=== PATIENT | male | born 1945 | race Caucasian/White ===

== ENCOUNTER 2021-04-13 05:03 | Inpatient (IN) | payer MEDICARE, OTHER ==
[2021-04-13] VITALS (9 sets, daily range): BP systolic 98–122; BP diastolic 59–75
[~2021-04-13] VITALS: Ht 185.4 cm; Wt 88.6 kg
[~2021-04-13 05:03] MED LIST: AMLO10TA PO; ASPI-1265 PO; HYDR-3136 PO; LOP25T PO; OLME40TA13 PO
[2021-04-13] MEDS ORDERED: octreotide inj. 500 MCG in normal saline 100ml IV soln 97.5 ML IV ONE (05:20)
[2021-04-13] MEDS ORDERED: famotidine/PF 10 mg/ml inj IV ONE (05:20)
[2021-04-13] MEDS ORDERED: pantoprazole 40MG/D5 100ML BAG 100 ML IV ONE (05:20)
[2021-04-13] MEDS ORDERED: normal saline 1000ML IV soln IV ONE (05:20)
[2021-04-13] MEDS ORDERED: pantoprazole 40MG/NS 100ML BAG 100 ML IV ONE (05:25)
[2021-04-13 05:38] LABS: APTT 28 SECONDS (22-32)
[2021-04-13 05:42] LABS: ALANINE AMINOTRANSFERASE 22 U/L (12-78); ALBUMIN 3.5 G/DL (3.4-5.0); ALBUMIN/GLOBULIN RATIO 1.1 (1.1-1.5); ALKALINE PHOSPHATASE 51 IU/L (46-116); ANION GAP 11 (8-16); ASPARTATE AMINO TRANSFERASE 21 U/L (10-37); BILIRUBIN,TOTAL 0.7 MG/DL (0.1-1.0); BLOOD UREA NITROGEN 44 MG/DL (7-18); BUN/CREATININE RATIO 58.7 (5.4-32.0); CALCIUM 9.1 MG/DL (8.5-10.1); CHLORIDE 98 MMOL/L (99-107); CREATININE 0.75 MG/DL (0.60-1.10); SODIUM 134 MMOL/L (135-145); TOTAL CARBON DIOXIDE 25.2 MMOL/L (24-32); TOTAL PROTEIN 6.6 G/DL (6.4-8.2); eGFR > 90 ML/MIN
[2021-04-13 05:43] LABS: BASOPHILS # (AUTO) 0.1 X10'3 (0-0.2); BASOPHILS % (AUTO) 0.4 % (0-1); EOSINOPHILS % (AUTO) 0.4 % (0-6); GLUCOSE 140 MG/DL (70-104); HEMATOCRIT 32.2 % (42.0-52.0); LYMPHOCYTES # (AUTO) 1.5 X10'3 (1.1-4.8); LYMPHOCYTES % (AUTO) 12.6 % (21-51); MEAN CORPUSCULAR HEMOGLOBIN 32.6 PG (27.0-31.0); MEAN PLATELET VOLUME 9.8 FL (7.4-10.4); MONOCYTES # (AUTO) 1.1 X10'3 (0-0.9); MONOCYTES % (AUTO) 9.2 % (2-12); NEUTROPHILS # (AUTO) 9.4 X10'3 (1.8-7.7); NEUTROPHILS % (AUTO) 77.4 % (42-75); PLATELET COUNT 208 X10'3 (140-440); RED BLOOD COUNT 3.36 X10'6 (4.70-6.10); RED CELL DISTRIBUTION WIDTH 12.7 % (11.5-14.5); WHITE BLOOD COUNT 12.2 X10'3 (4.5-11.0)
[2021-04-13] MEDS ORDERED: human prothrombin complex-PCC 80 ML IV ONE (05:55)
--- NOTE | 2021-04-13 06:04 | NUR ---
SPOKE TO MD ABOUT PT'S NAUSEA. PT HAD ANOTHER EPISODE OF EMESIS (250 CC) OF DARK BROWN. MD AWARE. DR Alvarado WILL PUT IN MEDICATION ORDERS.
[2021-04-13] MEDS ORDERED: ondansetron/PF 4mg/2ml inj IV ONE (06:05)
[2021-04-13] MEDS ORDERED: magnesium hydroxide 30ml (MOM) UD suspension PO PRN (07:25)
[2021-04-13] MEDS ORDERED: potassium Cl 20 mEq SR tablet PO PRN ×2 (07:25)
[2021-04-13] MEDS ORDERED: octreotide inj. 500 MCG in normal saline 100ml IV soln 100 ML IV SCH (07:25)
[2021-04-13] MEDS ORDERED: magnesium Cl slow-release 64mg tablet PO PRN (07:25)
[2021-04-13] MEDS ORDERED: diphenhydrAMINE 50 mg/ml inj IV PRN (07:25)
[2021-04-13] MEDS ORDERED: mag hydrox/Alum hydrox/simeth 30ml oral suspension PO PRN ×2 (07:25)
[2021-04-13] MEDS ORDERED: HYDROcodone/acetaminophen 10/325mg tab PO PRN (07:25)
[2021-04-13] MEDS ORDERED: ondansetron/PF 4mg/2ml inj IV PRN (07:25)
[2021-04-13] MEDS ORDERED: HYDROcodone/acetaminophen 5mg/325mg tablet PO PRN (07:25)
[2021-04-13] MEDS ORDERED: ondansetron 4mg rapidly disintigrating tab PO PRN (07:25)
[2021-04-13] MEDS ORDERED: acetaminophen 650mg rectal suppository RC PRN (07:25)
[2021-04-13] MEDS ORDERED: magnesium 4gm in 100ml NS 100 ML IV PRN (07:25)
[2021-04-13] MEDS ORDERED: cloNIDine 0.1 mg tablet PO PRN (07:25)
[2021-04-13] MEDS ORDERED: cyclobenzaprine 10mg tablet PO PRN (07:25)
[2021-04-13] MEDS ORDERED: dicyclomine 10 MG capsule PO PRN (07:25)
[2021-04-13] MEDS ORDERED: acetaminophen 325mg tablet PO PRN ×2 (07:25)
[2021-04-13] MEDS ORDERED: haloperidol 5mg tablet PO PRN (07:25)
[2021-04-13] MEDS ORDERED: normal saline 1000ml 1,000 ML IV SCH (07:25)
[2021-04-13] MEDS ORDERED: bisacodyl 10mg suppository rectal RC PRN (07:25)
[2021-04-13] MEDS ORDERED: LORazepam 2 mg/ml vial IV PRN (07:25)
[2021-04-13] MEDS ORDERED: metoclopramide 5 mg/ml inj IV PRN (07:25)
[2021-04-13] MEDS ORDERED: potassium CL 10mEq/100ml bag 100 ML IV PRN (07:25)
[2021-04-13] MEDS ORDERED: LORazepam 1 MG tablet PO PRN (07:25)
[2021-04-13] MEDS ORDERED: haloperidol lactate 5mg/ml inj IM PRN (07:25)
[2021-04-13] MEDS ORDERED: magnesium 2GM in 50ml NS 50 ML IV PRN (07:25)
[2021-04-13] MEDS ORDERED: diphenhydrAMINE 25mg capsule PO PRN (07:25)
[2021-04-13] MEDS: pantoprazole 40MG/NS 100ML BAG 100 ML IV SCH ×3 (07:37→20:39)
[2021-04-13] MEDS: folic acid 1mg/0.2ml inj IV SCH (08:00)
[2021-04-13] MEDS ORDERED: multivitamins, therapeutics tablet PO SCH (08:00)
[2021-04-13] MEDS: K and/or MAG REPLACEMENT MC SCH ×2 (08:00→20:00)
[2021-04-13 08:29] LABS: MAGNESIUM 1.6 MG/DL (1.5-2.4)
[2021-04-13 08:35] LABS: POTASSIUM 4.1 MMOL/L (3.5-5.1)
[2021-04-13] MEDS: docusate sod 100mg capsule PO SCH ×2 (08:38→20:47)
--- NOTE | 2021-04-13 10:15 | NUR ---
Attempted to call report to PCU. Nurse is on break. Will attempt in 15min
[2021-04-13] MEDS ORDERED: pantoprazole 40MG/D5 100ML BAG 100 ML IV SCH (11:00)
[2021-04-13] MEDS: thiamine 100mg/ml 2ml inj. IV SCH ×3 (12:50→20:40)
[2021-04-13] MEDS: multivitamins, therapeutics tablet PO SCH (12:50)
[2021-04-13] MEDS ORDERED: CELE-85 PO (12:53)
[2021-04-13] MEDS ORDERED: LOVA20TA2 PO (12:53)
[2021-04-13] MEDS ORDERED: LISI20TA28 PO (12:53)
[2021-04-13] MEDS ORDERED: AMLO10TA PO (12:53)
[2021-04-13] MEDS ORDERED: RIVA2.5T PO (13:00)
[2021-04-13] MEDS ORDERED: xarelto PO (13:00)
[2021-04-13] MEDS ORDERED: MIDAZolam 1 MG/ML 5ML VIAL ONE (15:34)
[2021-04-13] MEDS ORDERED: fentaNYL/PF 50MCG/1 ML 2ML syringe ONE (15:34)
[2021-04-13] MEDS ORDERED: diphenhydrAMINE 50 mg/ml inj ONE (15:35)
[2021-04-13] MEDS: lisinopril 20mg tablet PO SCH (20:46)
[2021-04-13] MEDS ORDERED: temazepam 15mg capsule PO PRN (21:00)
[2021-04-14 06:00] VITALS: BP 105/66
[2021-04-14 06:34] LABS: BASOPHILS % (AUTO) 0.6 % (0-1); EOSINOPHILS # (AUTO) 0.1 X10'3 (0-0.9); EOSINOPHILS % (AUTO) 2.1 % (0-6); HEMOGLOBIN 7.2 g/dl (14.0-17.9); LYMPHOCYTES # (AUTO) 1.4 X10'3 (1.1-4.8); LYMPHOCYTES % (AUTO) 20.7 % (21-51); MEAN CORPUSCULAR HEMOGLOBIN 33.5 PG (27.0-31.0); MEAN CORPUSCULAR HGB CONC 34.4 g/dL (33.0-36.5); MEAN CORPUSCULAR VOLUME 97.3 FL (78-98); MEAN PLATELET VOLUME 8.3 FL (7.4-10.4); MONOCYTES # (AUTO) 0.7 X10'3 (0-0.9); MONOCYTES % (AUTO) 9.7 % (2-12); NEUTROPHILS # (AUTO) 4.7 X10'3 (1.8-7.7); NEUTROPHILS % (AUTO) 66.9 % (42-75); PLATELET COUNT 195 X10'3 (140-440); RED BLOOD COUNT 2.15 X10'6 (4.70-6.10); RED CELL DISTRIBUTION WIDTH 12.6 % (11.5-14.5)
[2021-04-14 06:38] LABS: HEMATOCRIT 20.9 % (42.0-52.0)
[2021-04-14 06:49] LABS: ALANINE AMINOTRANSFERASE 20 U/L (12-78); ALBUMIN/GLOBULIN RATIO 1.1 (1.1-1.5); ALKALINE PHOSPHATASE 34 IU/L (46-116); ANION GAP 9 (8-16); ASPARTATE AMINO TRANSFERASE 26 U/L (10-37); BILIRUBIN,TOTAL 0.3 MG/DL (0.1-1.0); BLOOD UREA NITROGEN 34 MG/DL (7-18); BUN/CREATININE RATIO 44.2 (5.4-32.0); CHLORIDE 103 MMOL/L (99-107); CREATININE 0.77 MG/DL (0.60-1.10); GLUCOSE 118 MG/DL (70-104); MAGNESIUM 1.8 MG/DL (1.5-2.4); PHOSPHORUS 2.7 MG/DL (2.3-4.5); POTASSIUM 3.4 MMOL/L (3.5-5.1); SODIUM 136 MMOL/L (135-145); TOTAL CARBON DIOXIDE 24.2 MMOL/L (24-32); TOTAL PROTEIN 5.8 G/DL (6.4-8.2); eGFR > 90 ML/MIN
[2021-04-14] MEDS ORDERED: amLODIPine 5mg tablet PO SCH (08:00)
[2021-04-14] MEDS: lisinopril 20mg tablet PO SCH (08:35)
[2021-04-14] MEDS: multivitamins, therapeutics tablet PO SCH (08:35)
[2021-04-14] MEDS: pantoprazole 40MG/NS 100ML BAG 100 ML IV SCH (08:42)
[2021-04-14] MEDS: folic acid 1mg/0.2ml inj IV SCH (08:48)
[2021-04-14] MEDS: thiamine 100mg/ml 2ml inj. IV SCH (08:50)
[2021-04-14 11:28] VITALS: BP 114/65
[2021-04-14 11:45] VITALS: BP 108/69
[2021-04-14 12:01] VITALS: BP 110/67
[2021-04-14 13:00] VITALS: BP 115/68
[2021-04-14] MEDS ORDERED: PANT-47 PO (13:05)
[2021-04-14 16:14] VITALS: BP 118/61
[2021-04-17] MEDS ORDERED: folic acid 1mg tablet PO SCH (08:00)
[2021-04-17] MEDS ORDERED: thiamine 100mg tablet PO SCH (08:00)
== END 2021-04-14 16:38 | disposition home or self-care (01) | DRG 368 ==
LOC: ER 05:04 → ED HOLD 07:30 → PCU 3S 11:11
PROVIDERS: ADMIT Family Medicine; ATTEND Family Medicine
PROC: 30233N1 Transfusion of Nonautologous Red Blood Cells into Peripheral Vein, Percutaneous Approach (ICD-10-PCS; principal; 2021-04-14)
DX: K20.81 Other esophagitis with bleeding (principal); K29.71 Gastritis, unspecified, with bleeding; K29.81 Duodenitis with bleeding; E87.1 Hypo-osmolality and hyponatremia; D62 Acute posthemorrhagic anemia; Z20.822 Contact with and (suspected) exposure to COVID-19; I48.91 Unspecified atrial fibrillation; M54.9 Dorsalgia, unspecified; R79.89 Other specified abnormal findings of blood chemistry; T39.395A Adverse effect of other nonsteroidal anti-inflammatory drugs [NSAID], initial encounter; D72.829 Elevated white blood cell count, unspecified; E78.00 Pure hypercholesterolemia, unspecified; E78.5 Hyperlipidemia, unspecified; E87.6 Hypokalemia; G89.29 Other chronic pain; I10 Essential (primary) hypertension; Y92.89 Other specified places as the place of occurrence of the external cause; Z79.01 Long term (current) use of anticoagulants; Z72.89 Other problems related to lifestyle
CPT/HCPCS: 36415; 36430; 43239; 71045; 71250; 74176; 80053; 82140; 83735; 84100; 84132; 85025; 85610; 85730; 86885; 86900; 86901; 86920; 87081; 87635; 88305; 93005; 96365; 96366; 96368; 96375; 99152; 99291; A4620; C9113; G0378; J1200; J2250; J2354; J2405; J3010; J3411; J3490; J7030; J7040; J7168; P9016

== ENCOUNTER 2024-02-11 10:11 | Day surgery (SDC) | payer MEDICARE, OTHER ==
[2024-02-07 09:00] LABS: BASOPHILS % (AUTO) 0.8 % (0-1); EOSINOPHILS # (AUTO) 0.1 X10'3 (0-0.9); EOSINOPHILS % (AUTO) 1.9 % (0-6); HEMATOCRIT 39.9 % (42.0-52.0); HEMOGLOBIN 13.9 g/dl (14.0-17.9); LYMPHOCYTES # (AUTO) 1.3 X10'3 (1.1-4.8); LYMPHOCYTES % (AUTO) 21.5 % (21-51); MEAN CORPUSCULAR HEMOGLOBIN 33.3 PG (27.0-31.0); MEAN CORPUSCULAR HGB CONC 34.8 g/dL (33.0-36.5); MEAN CORPUSCULAR VOLUME 95.7 FL (78-98); MEAN PLATELET VOLUME 8.8 FL (7.4-10.4); MONOCYTES # (AUTO) 0.8 X10'3 (0-0.9); MONOCYTES % (AUTO) 13.4 % (2-12); NEUTROPHILS # (AUTO) 3.7 X10'3 (1.8-7.7); NEUTROPHILS % (AUTO) 62.4 % (42-75); PLATELET COUNT 204 X10'3 (140-440); RED BLOOD COUNT 4.16 X10'6 (4.70-6.10); RED CELL DISTRIBUTION WIDTH 12.5 % (11.5-14.5)
[2024-02-07 09:04] LABS: APTT 31 SECONDS (22-32); INR 1.1 INR; PROTHROMBIN TIME 11.1 SECONDS (9.0-12.0)
[2024-02-07 09:40] LABS: ALBUMIN 3.9 G/DL (3.4-5.0); ANION GAP 7 (8-16); BLOOD UREA NITROGEN 11 MG/DL (7-18); BUN/CREATININE RATIO 14.3 (10.0-20.0); CALCIUM 8.9 MG/DL (8.5-10.1); CHLORIDE 98 MMOL/L (99-107); CHOL/HDL RATIO 2.9 (0.00-4.99); CHOLESTEROL 154 MG/DL (0-200); CREATININE 0.77 MG/DL (0.60-1.10); HDL CHOLESTEROL 53 MG/DL (35-60); LDL CHOLESTEROL 89 MG/DL (50-100); SODIUM 134 MMOL/L (135-145); TOTAL CARBON DIOXIDE 29.5 MMOL/L (24-32); TRIGLYCERIDES 129 MG/DL (20-135); eGFR > 90 ML/MIN
[2024-02-07 09:44] LABS: GLUCOSE 119 MG/DL (70-104)
[~2024-02-11] VITALS: Ht 182.9 cm; Wt 84.5 kg
[2024-02-11] VITALS (13 sets, daily range): BP systolic 103–139; BP diastolic 69–105; PULSE 74–107; RESP 16; TEMP 97.9; O2SAT 91–99
[~2024-02-11 10:11] MED LIST changes: -ASPI-1265 PO; -HYDR-3136 PO; +LISI20TA28 PO; -LOP25T PO; +LOVA20TA2 PO; -OLME40TA13 PO; +PANT-47 PO
[2024-02-11] MEDS ORDERED: APIX5TAB3 PO (10:33)
[2024-02-11] MEDS ORDERED: FLEC50TA PO (10:33)
[2024-02-11] MEDS ORDERED: normal saline 1000ml 1,000 ML IV SCH (10:35)
[2024-02-11] MEDS ORDERED: VITA0.4T18 (10:36)
[2024-02-11] MEDS ORDERED: GINKO BILOBA (10:36)
[2024-02-11] MEDS ORDERED: CHOL20002 PO (10:36)
[2024-02-11] MEDS: fentaNYL/PF 50MCG/1 ML 2ML syringe IV ONE (13:26)
[2024-02-11] MEDS: MIDAZolam 1mg/ml 10ml vial IV ONE (13:27)
== END 2024-02-11 14:36 | disposition home or self-care (01) ==
LOC: SSTAY O 10:11
PROVIDERS: ATTEND Internal Medicine Interventional Cardiology
DX: I48.91 Unspecified atrial fibrillation (principal); R94.31 Abnormal electrocardiogram [ECG] [EKG]; I45.2 Bifascicular block; I10 Essential (primary) hypertension; E78.00 Pure hypercholesterolemia, unspecified; Z79.01 Long term (current) use of anticoagulants; Z79.899 Other long term (current) drug therapy
CPT/HCPCS: 36415; 80048; 80061; 85025; 85610; 85730; 92960; 93005; J2250; J3010